=== PATIENT | female | born 1995 | race American Indian/Alaskan Native ===

== ENCOUNTER 2020-06-30 10:26 | Emergency (ER) | payer SELFPAY ==
[2020-06-30 10:58] VITALS: BP 138/72
[2020-06-30] MEDS ORDERED: ACETAMINOPHEN 325 MG TAB PO ONE (11:19)
--- NOTE | 2020-06-30 11:19 | Emergency Department Report ---
ED Female HPI - General Chief complaint: Abdominal Pain Stated complaint: VAGINAL BLEEDING/NOT ON MENSTRUAL CYCLE Time Seen by Provider: 06/30/20 11:17 Source: patient Mode of arrival: Ambulatory Limitations: No Limitations - History of Present Illness Initial comments: 24-year-old female with no significant past medical history presents to the ER today complaining of lower abdominal pain and vaginal bleeding. Patient states that yesterday she felt 2 pops in her right lower quadrant area, that she felt something moist in her underwear and when she went to the bathroom and looked she noticed that she was bleeding. Patient states that the bleeding has been persistent. She has used about 4 pads since the bleeding started and she still continues to have sharp constant right lower quadrant abdominal pain. She states that her last menstrual cycle was June 15. She states that this bleeding is heavier than her normal menstrual cycle. She denies any clots. She denies any abnormal vaginal discharge or UTI symptoms. She denies any nausea or vomiting. She is not currently on any control. She is sexually active with unprotected oral sexual intercourse. She denies any similar symptoms in the past. MD Complaint: vaginal bleeding - Related Data Allergies Allergy/AdvReac Type Severity Reaction Status Date / Time Latex, Natural Rubber Allergy Hives Verified 06/30/20 10:56 ED Review of Systems ROS: Stated complaint: VAGINAL BLEEDING/NOT ON MENSTRUAL CYCLE Other details as noted in HPI Comment: All other systems reviewed and negative Constitutional: denies: chills, fever Respiratory: denies: cough, shortness of breath, wheezing Cardiovascular: denies: chest pain, palpitations Gastrointestinal: abdominal pain. denies: nausea, vomiting, diarrhea, constipation, hematemesis, melena, hematochezia Genitourinary: abnormal menses, other (Abnormal vaginal discharge). denies: urgency, dysuria, frequency, hematuria, discharge Skin: denies: rash Neurological: denies: headache, weakness, paresthesias Psychiatric: denies: anxiety, depression Hematological/Lymphatic: denies: easy bleeding, easy bruising ED Past Medical Hx - Past Medical History Hx Asthma: Yes ED Physical Exam - General Limitations: No Limitations General appearance: alert, in no apparent distress - Head Head exam: Present: atraumatic, normocephalic, normal inspection - Eye Eye exam: Present: normal appearance, PERRL, EOMI Pupils: Present: normal accommodation - ENT ENT exam: Present: normal exam, mucous membranes moist - Neck Neck exam: Present: normal inspection, full ROM - Respiratory Respiratory exam: Present: normal lung sounds bilaterally. Absent: respiratory distress - Cardiovascular Cardiovascular Exam: Present: regular rate, normal rhythm, normal heart sounds - GI/Abdominal GI/Abdominal exam: Present: soft, tenderness (Mild tenderness to palpation to right lower quadrant and suprapubic area without any guarding or rebound. No abdominal rigidity or distention noted.). Absent: distended - Neurological Exam Neurological exam: Present: alert, oriented X3, CN II-XII intact, normal gait - Psychiatric Psychiatric exam: Present: normal affect, normal mood - Skin Skin exam: Present: intact ED Course Vital Signs 06/30/20 10:56 Temperature 98.1 F Pulse Rate 99 H Respiratory 20 Rate Blood Pressure 138/72 O2 Sat by Pulse 99 Oximetry ED Medical Decision Making - Lab Data Result diagrams: 06/30/20 11:31 06/30/20 11:31 - Radiology Data 1345: I noticed that it had been 3 hrs and pt still hadn't had her laps drawn. Spoke to dictaphone transcriber in triage who did some investigation and found out that patient's blood was stuck in tube. They were finally able to get tube and remove the blood. Apologized to patient and explained what happened. She wanted to leave AMA but I convinced her to stay and told her that they were evaluating her labs now and I will let her know the results as soon as possible. Patient agreed to wait. 1428: Labs reviewed and unremarkable. Went to discussed results with patient. Called several times with no answer. Spoke to registration who said that she observed patient leaving. Pt apparently eloped with notifying myself or the nursing staff . Critical care attestation.: If time is entered above; I have spent that time in minutes in the direct care of this critically ill patient, excluding procedure time. ED Disposition Clinical Impression: Abnormal vaginal bleeding Disposition: -07 ELOPED Is pt being admited?: No Does the pt Need Aspirin: No Condition: Stable Instructions: Abdominal Pain (ED) Referrals: PRIMARY CARE, [Primary Care Provider] - 3-5 Days
[2020-06-30 13:51] LABS: Basophils % (Auto) 0.5 % (0.0-1.8); Eosinophils # (Auto) 0.1 K/mm3 (0.0-0.4); Eosinophils % (Auto) 1.9 % (0.0-4.3); Hematocrit 42.8 % (30.3-42.9); Hemoglobin 13.8 gm/dl (10.1-14.3); Lymphocytes # (Auto) 1.5 K/mm3 (1.2-5.4); Lymphocytes % (Auto) 23.9 % (13.4-35.0); Mean Corpuscular HGB Conc 32 % (30-34); Mean Corpuscular Volume 78 fl (79-97); Monocytes # (Auto) 0.5 K/mm3 (0.0-0.8); Platelet Count 353 K/mm3 (140-440); Red Blood Count 5.46 M/mm3 (3.65-5.03); Red Cell Distribution Width 14.6 % (13.2-15.2)
[2020-06-30 14:08] LABS: Alanine Aminotransferase 8 units/L (7-56); Albumin 4.1 g/dL (3.9-5); BUN/Creatinine Ratio 14; Blood Urea Nitrogen 11 mg/dL (7-17); Calcium 9.3 mg/dL (8.4-10.2); Hemolysis Index 5
== END 2020-06-30 14:41 | disposition left against medical advice (07) ==
LOC: ED 10:26
DX: N93.9 Abnormal uterine and vaginal bleeding, unspecified (principal); J45.909 Unspecified asthma, uncomplicated; Z91.040 Latex allergy status; Z88.8 Allergy status to other drugs, medicaments and biological substances
CPT/HCPCS: 36415; 80053; 84703; 85025; 99282